=== PATIENT | female | born 1985 | race Caucasian/White ===

== ENCOUNTER 2016-10-10 22:31 | Emergency (ER) | payer OTHER ==
[~2016-10-10 22:31] MED LIST: BACTRIM,SEPT1 TABLET PO; CITALOPRAM HBR20 MG PO; DEPO-PROVER150 MG/ML IM; DEPO-PROVERA; LIBRIUM25 MG PO; LO-DOSE ASPIRIN81 M1 PO; NICOTINE PATCH1 EAC1 TD; PRENATAL TABLE1 EAC3 PO; TRAZODONE HCL50 MG PO; ULTRAM50 MG PO; VICODIN; VICODIN,LORT1 TABLET PO; ZITHROMAX Z-PA250 MG PO; ZOFRAN ODT4 MG PO; ZOFRAN4 MG PO
[2016-10-10 23:32] VITALS: BP 123/74
== END 2016-10-11 01:14 ==
LOC: EME 22:31
DX: F10.129 Alcohol abuse with intoxication, unspecified (principal); F17.200 Nicotine dependence, unspecified, uncomplicated
CPT/HCPCS: 99281; 99285